=== PATIENT | male | born 1990 | race African-American/Black ===

== ENCOUNTER 2020-05-30 17:25 | Emergency (ER) | payer MEDICAID, SELFPAY ==
[2020-05-30 17:42] VITALS: BP 118/76; BP 119/72; PULSE 60; PULSE 64; RESP 18; TEMP 35.6; O2SAT 96; BMI 30.7
--- NOTE | 2020-05-30 18:03 | ECG_ITS ---
Test Reason : CHEST PRESSURE Blood Pressure : / mmHG Vent. Rate : 074 BPM Atrial Rate : 074 BPM P-R Int : 160 ms QRS Dur : 086 ms QT Int : 384 ms P-R-T Axes : 046 044 013 degrees QTc Int : 426 ms Normal sinus rhythm with sinus arrhythmia Possible Early repolarization Otherwise normal ECG When compared with ECG of 18-FEB-2020 09:53, No significant change was found Referred By: Wendy Hoffman Electronically Signed By:NATALYA RICO MD
--- NOTE | 2020-05-30 18:04 | XR_ITS ---
EXAMINATION: XR CHEST CLINICAL INFORMATION: Fall, chest pain, EtOH COMPARISON: 02/18/2020 TECHNIQUE: Frontal view of the chest was obtained. FINDINGS: Low lung volumes. Cardiac mediastinal silhouette is normal. Lungs are clear without consolidation, pleural effusion or pneumothorax. No displaced rib fractures. XR/XR chest 1V IMPRESSION: No acute cardiopulmonary process.
[2020-05-30 18:50] LABS: MANUAL DIFF FLAG NO
[2020-05-30 18:52] LABS: Basophils Absolute Auto 0.1 X10*3/uL (0.0-0.2); Basophils Percent Auto 0.4 % (0-2); Eosinophils Percent Auto 0.1 % (0-4); Hematocrit 42.6 % (42-52); Imm Gran Abs Auto 0.12 X10*3/uL (0.00-0.03); Imm Gran Pct Auto 0.6 % (0.0-0.4); Lymphocytes Absolute Auto 1.3 X10*3/uL (1.2-4.9); Lymphocytes Percent Auto 6.3 % (20-40); Mean Corpuscular HGB Conc 35.2 g/dl (31.0-36.0); Mean Corpuscular Hemoglobin 29.8 pg (27.0-33.0); Mean Corpuscular Volume 84.5 fL (80-98); Monocytes Absolute Auto 0.9 X10*3/uL (0.1-1.2); Monocytes Percent Auto 4.5 % (2-11); Neutrophils Absolute Auto 17.9 X10*3/uL (2.0-8.3); Neutrophils Percent Auto 88.1 % (45-73); Platelet Count 264 X10*3/uL (160-400); Red Blood Count 5.04 X10*6/uL (4.60-5.80); Red Cell Distribution Width 11.9 % (11.0-16.0); White Blood Count 20.4 X10*3/uL (4.8-10.8)
[2020-05-30 19:21] LABS: Anion Gap 15 (12-20); Blood Urea Nitrogen 10 mg/dL (9-16); Calcium 8.8 mg/dL (8.4-10.2); Carbon Dioxide 23 mmol/L (22-29); Chloride 103 mmol/L (96-108); Creatinine Clr Calc Pharmacy 139.7; Estimated Glomerular Filt Rate > 60; Glucose Random 72 mg/dL (60-115); Potassium 3.8 mmol/l (3.3-5.1); Sodium 137 mmol/L (135-145)
[2020-05-30 19:28] LABS: Troponin-I High Sensitivity < 3.5 ng/L (<3.5-35.0)
--- NOTE | 2020-05-30 19:31 | ED.ALCOHOL ---
HPI - Alcohol General Chief Complaint: ETOH/Substance Use Stated Complaint: etoh Time Seen by Provider: 05/30/20 18:03 Source: patient and EMS Mode of arrival: EMS Limitations: no limitations History of Present Illness HPI narrative: 29-year-old male with past medical history of congenital heart abnormality, EtOH abuse, presents with syncopal episode after drinking alcohol and smoking marijuana. Does not describe any chest pain or pressure, fevers, chills, headaches, abdominal pain, abdominal distention, dysuria, hematuria, edema, weakness, lightheadedness, nausea, vomiting, diarrhea or constipation. MD complaint: alcohol intoxication and alcohol dependence Last drink: Just prior to admission Chronic alcohol use: Yes Previous visits for alcohol intoxication: Yes Recent trauma: No Associated symptoms: syncope Treatments prior to arrival: none Related Data Allergies Allergy/AdvReac Type Severity Reaction Status Date / Time No Known Allergies Allergy Verified 05/30/20 17:41 [No Known Allergies*] Review of Systems Review of Systems: Constitutional: No Weight loss, No Fever, No Chills, No Night Sweats, No Fatigue, No Malaise ENT/Mouth: No Hearing loss, No Ear Pain, No Nasal Congestion, No Sinus Pain, No Hoarseness, No sore throat, No Rhinorrhea, No Swallowing Difficulty Eyes: No Eye Pain, No Swelling, No Redness, No Foreign Body, No Discharge, No Vision Changes Cardiovascular: No Chest Pain, No SOB, No Dyspnea on Exertion, No Orthopnea, No Edema, No Palpitations Respiratory: No Cough, No Sputum, No Wheezing, No Smoke Exposure, No Dyspnea Gastrointestinal: No Nausea, No Vomiting, No Diarrhea, No Constipation, No abdominal Pain, No Hematochezia, No Melena Genitourinary: no irregular bleeding, No Dysuria, No Urinary Frequency, No Hematuria, No Urinary Incontinence, No Urgency, No Flank Pain, No Urinary Flow Changes, No Hesitancy Musculoskeletal: No joint pain, No Myalgias, No Joint Swelling Skin: No Skin Lesions, No rash Neuro: positive syncopal episode, No Weakness, No Numbness, No Paresthesias, No Dizziness, No Headache Psych: Positive EtOH and marijuana use, No Anxiety/Panic, No Depression, No SI/HI/AH/VH, No Social Issues Heme/Lymph: No Bruising, No Bleeding,No Lymphadenopathy Endocrine: No Polyuria, No Polydipsia, No Temperature Intolerance Yes all other systems are reviewed and are negative FOR[facility]LY [facility], [facility] Past Medical History Attestation statement: The following information was validated with the patient. Medical History Healthy adult Social History Social History Alcohol intake: current Alcohol intake frequency: 3 or more drinks per day Alcohol type: beer Smoking Status: Unknown if ever smoked Use of substances other than those prescribed or required for medical reasons: Yes Substance Use Type: Marijuana Substance Use Frequency: Daily Last Used Substance: Just Prior to Admission Any prior treatment program specific to substance use: No Advance Directives: No Advance Directives Information Provided: No Physical Exam Vital Signs: Vital Signs: Last Vital Signs Temp 96.1 F L 05/30/20 17:42 Pulse 60 05/30/20 17:42 Resp 18 05/30/20 17:42 BP 119/72 05/30/20 17:42 Pulse Ox 96 05/30/20 17:42 Body Mass Index 30.7 Appearance: Alert. Oriented X3. No acute distress. Eyes: Pupils equal, round and reactive to light. ENT: Pharynx normal. Neck: Normal inspection. Neck supple. CVS: Normal heart rate and rhythm. Pulses normal. Respiratory: No respiratory distress. Breath sounds normal. Abdomen: Soft and nontender. Skin: Skin warm and dry. Normal skin color. Normal skin turgor. Extremities: No lower extremity edema. Neuro: No motor deficit. No sensory deficit. Course Course Course Narrative: 29-year-old male presents with a syncopal episode after drinking alcohol and smoking marijuana. He does have a congenital heart defect, he thinks his heart is enlarged but is not sure exactly what his abnormality is. He does not take any medications that are prescribed, uses fish oil and Co Q10 as cardiac supplements. Plan of care is to rule out ACS, and metabolized freedom. EKG normal sinus rhythm with nonspecific ST wave abnormality consistent with prior exams, and chest x-ray negative for acute findings. Chemistries are negative, white count is elevated at 20. it is unknown why his white count is elevated as he is afebrile, has no signs and symptoms of infection to the skin, abdomen, or urine. He has not had any sick contacts, does not feel ill, and has had prior episodes of syncopal episodes in conjunction with marijuana and alcohol use. This case reviewed by Dr. Dye, we both agree that patient can be discharged home. He does have follow-up with primary care provider the day after Thanksgiving. patient verbalized understanding of and agrees to plan of care to discharge home. MDM - Alcohol MDM Narrative Medical decision making narrative: Syncope, ACS Differential Diagnosis Differential diagnosis: Likely alcohol dependence and alcohol intoxication Medical Records Attestation: I reviewed the patient's medical records. Lab Data Attestation: I reviewed the patient's lab results. Result diagrams: 05/30/20 18:45 05/30/20 18:45 Labs: Lab Results 05/30/20 05/30/20 05/30/20 Range/Units 18:45 18:45 18:45 WBC 20.4 H (4.8-10.8) X10*3/uL RBC 5.04 (4.60-5.80) X10*6/uL Hgb 15.0 (14.0-18.0) g/dl Hct 42.6 (42-52) % MCV 84.5 (80-98) fL MCH 29.8 (27.0-33.0) pg MCHC 35.2 (31.0-36.0) g/dl RDW 11.9 (11.0-16.0) % Plt Count 264 (160-400) X10*3/uL MPV 11.0 (9.4-12.4) fL Immature Gran % (Auto) 0.6 H (0.0-0.4) % Neut % (Auto) 88.1 H (45-73) % Lymph % (Auto) 6.3 L (20-40) % Mason % (Auto) 4.5 (2-11) % Eos % (Auto) 0.1 (0-4) % Baso % (Auto) 0.4 (0-2) % Lymph # (Auto) 1.3 (1.2-4.9) X10*3/uL Mason # (Auto) 0.9 (0.1-1.2) X10*3/uL Eos # (Auto) 0.0 (0.0-0.4) X10*3/uL Baso # (Auto) 0.1 (0.0-0.2) X10*3/uL Abs Immat Gran (auto) 0.12 H (0.00-0.03) X10*3/uL Absolute Neuts (auto) 17.9 H (2.0-8.3) X10*3/uL Absolute Nucleated RBC 0.000 (0.0-0.012) X10*3/uL Nucleated RBC % (auto) 0.0 (0.0-0.2) /100WBC Sodium 137 (135-145) mmol/L Potassium 3.8 (3.3-5.1) mmol/l Chloride 103 (96-108) mmol/L Carbon Dioxide 23 (22-29) mmol/L Anion Gap 15 (12-20) BUN 10 (9-16) mg/dL Creatinine 0.81 (0.5-1.4) mg/dL Estim Creat Clear Calc 139.7 Estimated GFR > 60 Random Glucose 72 (60-115) mg/dL Calcium 8.8 (8.4-10.2) mg/dL Troponin I High Sens < 3.5 (<3.5-35.0) ng/L Imaging Data Chest x-ray: Attestation: I personally reviewed and interpreted this imaging study as follows: Radiologist's impression: EXAMINATION: XR CHEST CLINICAL INFORMATION: Fall, chest pain, EtOH COMPARISON: 02/18/2020 TECHNIQUE: Frontal view of the chest was obtained. FINDINGS: Low lung volumes. Cardiac mediastinal silhouette is normal. Lungs are clear without consolidation, pleural effusion or pneumothorax. No displaced rib fractures. XR/XR chest 1V IMPRESSION: No acute cardiopulmonary process. ECG Data Attestation: I personally reviewed and interpreted this ECG as follows: ECG interpretation date: 05/30/20 ECG interpretation time: 18:32 Prior ECG tracings: available for review Interpretation: ventricular rate 74 beats per minute, p.r. interval 160 milliseconds, QRS duration 86 milliseconds, QTC 384, QTC 426 normal sinus rhythm with sinus arrhythmia, nonspecific ST and T-wave abnormality, abnormal EKG. No significant change from February 18, 2020. Scores Heart Score History: -0- slightly suspicious ECG: -0- normal Age: -0- < or = 45 Risk factory: -1- 1 or 2 risk factors Troponin: -0- < or = normal limit Score: 1 Risk: 1.7% Discharge Plan Discharge Clinical Impression: Alcoholic intoxication Patient Disposition: Home, Self-Care Instructions: Abuse of Alcohol (ED), Polysubstance Abuse (ED) Additional Instructions: you were evaluated for a syncopal episode after alcohol intoxication and marijuana use. Your EKG is normal sinus rhythm, troponins are negative, however your blood count shows an elevated white count of 20. you do not report any signs and symptoms of infection, this could possibly be due to alcohol abuse. You must follow-up with primary care physician this week and get repeat blood work. You may also need follow-up with Cardiology for Holter monitor, this may be a cardiac arrhythmia that was not detected during your stay in the emergency department. If you have any symptoms indicating infection please return to the emergency department immediately. Please consider detox. This is your 3rd visit in the past year for alcohol intoxication with syncopal episode. Thank you for choosing this emergency department for evaluation. Please follow-up with primary care physician as needed. Return to the emergency department for any new, concerning, or worsening symptoms. Referrals: Toñito Trujillo MD [Physician] - 2 days ( Syncopal episodes, has a history of unknown congenital cardiac abnormality per patient's parent.) Stand Alone Forms: Work/School Release Interventions: ED Discharge Assessment Last Done: 05/30/20 20:30 Discharge Date/Time: 05/30/20 20:32
== END 2020-05-30 20:32 | disposition home or self-care (01) ==
PROVIDERS: Nurse Practitioner Family; Emergency Provider Internal Medicine; PCP Internal Medicine
DX: R55 Syncope and collapse (principal); R07.89 Other chest pain; F10.129 Alcohol abuse with intoxication, unspecified; F12.90 Cannabis use, unspecified, uncomplicated; Y90.9 Presence of alcohol in blood, level not specified
CPT/HCPCS: 36415; 71045; 80048; 84484; 85025; 93005; 99284